=== PATIENT | male | born 1975 | race Caucasian/White ===

== ENCOUNTER 2016-08-30 19:34 | Emergency (ER) | payer OTHER ==
[~2016-08-30] VITALS: Ht 190.5 cm; Wt 119.6 kg
[2016-08-30 20:30] LABS: BLOOD UREA NITROGEN 17 mg/dL (7-18)
[2016-08-30] MEDS ORDERED: SODIUM CHLORIDE FLUSH 10ML SYR IVF ONE (20:30)
[2016-08-30 20:36] LABS: IS PT STATUS REG ER OR PRE ER? YES
[2016-08-30 21:28] VITALS: BP 142/76
== END 2016-08-30 22:26 | disposition home or self-care (01) ==
LOC: ED 22:20
DX: R00.2 Palpitations (principal); R94.31 Abnormal electrocardiogram [ECG] [EKG]
CPT/HCPCS: 36415; 71020; 80048; 82040; 83735; 84439; 84443; 84484; 85025; 93005; 99285